=== PATIENT | female | born 1955 | race Two or more races ===

== ENCOUNTER 2022-06-06 05:40 | Day surgery (SDC) | payer OTHER | END 2022-06-06 10:30 | disposition home or self-care (01) | LOC: AMB-ENDOS 05:40 | PROVIDERS: ATTEND Colon & Rectal Surgery | DX: K57.32 Diverticulitis of large intestine without perforation or abscess without bleeding (principal); R19.5 Other fecal abnormalities; K64.8 Other hemorrhoids ==

== ENCOUNTER 2022-08-01 10:41 | Inpatient (IN) | payer OTHER ==
[~2022-08-01] VITALS: Ht 149.9 cm; Wt 46.7 kg
[2022-08-01] MEDS ORDERED: CRESTOR20 MG PO (13:51)
[2022-08-01] MEDS ORDERED: COZAAR100 MG PO (13:51)
[2022-08-01] MEDS ORDERED: GLIMEPIRIDE1 MG PO (13:52)
[2022-08-01] MEDS ORDERED: CATAFAN PO (13:52)
[2022-08-08] MEDS ORDERED: DICLOFENAC POTA50 MG (09:18)
[2022-08-08] MEDS ORDERED: ATORVASTATIN CA40 MG (09:18)
== END 2022-08-09 12:25 | disposition home or self-care (01) | DRG 330 ==
LOC: O/R 08-07 08:35 → SURH 08-07 08:35
PROVIDERS: ADMIT Colon & Rectal Surgery; ATTEND Colon & Rectal Surgery
PROC: 0DN80ZZ Release Small Intestine, Open Approach (ICD-10-PCS; 2022-08-07)
PROC: 0WJG0ZZ Inspection of Peritoneal Cavity, Open Approach (ICD-10-PCS; 2022-08-07)
PROC: 0DQ80ZZ Repair Small Intestine, Open Approach (ICD-10-PCS; principal; 2022-08-07 17:15)
DX: K57.20 Diverticulitis of large intestine with perforation and abscess without bleeding (principal); K56.51 Intestinal adhesions [bands], with partial obstruction; K91.72 Accidental puncture and laceration of a digestive system organ or structure during other procedure; Z53.31 Laparoscopic surgical procedure converted to open procedure; Z93.3 Colostomy status

== ENCOUNTER 2022-08-14 17:43 | Emergency (ER) | payer OTHER ==
[~2022-08-14] VITALS: Ht 149.9 cm; Wt 78.5 kg
[~2022-08-14 17:43] MED LIST: ATORVASTATIN CA40 MG; CATAFAN PO; COZAAR100 MG PO; CRESTOR20 MG PO; DICLOFENAC POTA50 MG; GLIMEPIRIDE1 MG PO
== END 2022-08-14 21:17 | disposition home or self-care (01) ==
LOC: ER 17:43
DX: T81.30XA Disruption of wound, unspecified, initial encounter (principal); Z93.3 Colostomy status; I10 Essential (primary) hypertension

== ENCOUNTER 2023-10-10 08:27 | Inpatient (IN) | payer OTHER ==
[2023-10-16] MEDS ORDERED: SERTRALINE HCL25 MG (10:49)
[2023-10-16] MEDS ORDERED: LOSARTAN POTAS100 MG (10:49)
[2023-10-16] MEDS ORDERED: CHLORHEXIDINE GLUCONATE 120 ML BOTTLE TOP ONE (14:45)
[2023-10-16] MEDS ORDERED: METRONIDAZOLE/SODIUM CHLORIDE 500 MG/100 ML PIGGYBACK IV SCH (14:45)
[2023-10-16] MEDS ORDERED: CEFTRIAXONE SODIUM 2,000 MG VIAL IV SCH (14:45)
[2023-10-16] MEDS ORDERED: MORPHINE SULFATE 4 MG/ML CARTRIDGE IV PRN (17:15)
[2023-10-16] MEDS ORDERED: OxyCODONE HCL 5 MG TABLET (ROXICODONE) PO PRN (17:15)
[2023-10-16] MEDS ORDERED: ONDANSETRON HCL 2 MG/ML VIAL IV PRN (17:15)
[2023-10-16] MEDS ORDERED: RINGERS SOLUTION,LACTATED 1,000 ML IV SCH (17:15)
[2023-10-16] MEDS ORDERED: SUGAMMADEX SODIUM 200 MG/2 ML VIAL IV ONE (18:45)
[2023-10-16] MEDS ORDERED: ACETAMINOPHEN 500 MG GEL..CAP PO SCH (20:00)
[2023-10-16] MEDS ORDERED: FAMOTIDINE/PF 20 MG/2 ML VIAL IV PUSH SCH (21:00)
[2023-10-16] MEDS ORDERED: SIMETHICONE 125 MG CAPSULE PO SCH (21:00)
[2023-10-16 21:37] LABS: HEMATOCRIT 41.5 % (36.0-45.00); HEMOGLOBIN 13.4 g/dL (12.0-15.00); MEAN CORPUSCULAR HEMOGLOBIN 30.1 pg (27.00-32.0); MEAN CORPUSCULAR HGB CONC 32.3 g/dl (32.0-36.0); PLATELET COUNT 243 K/uL (150-450); RED BLOOD COUNT 4.46 M/uL (4.00-6.00)
[2023-10-17] MEDS ORDERED: GABAPENTIN 300 MG CAPSULE PO SCH (01:00)
[2023-10-17] MEDS ORDERED: METOCLOPRAMIDE HCL 5 MG/ML VIAL IV SCH (01:00)
[2023-10-17] MEDS ORDERED: CELECOXIB 200 MG CAPSULE PO SCH (05:00)
[2023-10-17 08:23] LABS: HEMATOCRIT 41.7 % (36.0-45.00); HEMOGLOBIN 13.6 g/dL (12.0-15.00); MEAN CELL VOLUME 92.2 fL (80.00-100.00); MEAN CORPUSCULAR HEMOGLOBIN 30.2 pg (27.00-32.0); MEAN CORPUSCULAR HGB CONC 32.7 g/dl (32.0-36.0); RED BLOOD COUNT 4.52 M/uL (4.00-6.00)
[2023-10-17 08:24] LABS: PLATELET COUNT 138 K/uL (150-450)
[2023-10-17 08:45] LABS: ALBUMIN 3.2 gm/dL (3.4-5.0); CALCIUM 8.3 mg/dL (8.5-10.1); CREATININE SERUM 1.99 mg/dL (0.55-1.02); GFR 24.92; MAGNESIUM 1.8 mg/dL (1.8-2.4); PHOSPHOROUS 4.8 mg/dL (2.5-4.9); POTASSIUM 4.97 mEq/L (3.5-5.1)
[2023-10-17] MEDS ORDERED: LACTULOSE 20 G/30 ML BLIST.PACK PO SCH (09:00)
[2023-10-17] MEDS ORDERED: LACTOBACILLUS ACIDOPHILUS 1 CAP CAP PO SCH (09:00)
[2023-10-17] MEDS ORDERED: HYOSCYAMINE SULFATE 0.125 MG TAB.SUBL SL SCH (09:00)
[2023-10-17] MEDS ORDERED: LOSARTAN POTASSIUM 100 MG TABLET PO SCH (09:40)
[2023-10-17] MEDS ORDERED: MEPERIDINE HCL/PF 50 MG/ML VIAL IV PRN (11:30)
[2023-10-17] MEDS ORDERED: POLYETHYLENE GLYCOL 3350 17 GM BLIST.PACK PO SCH (17:00)
[2023-10-17] MEDS ORDERED: ENOXAPARIN SODIUM 40 MG/0.4 ML SYRINGE SUBCUTANEO SCH (17:00)
[2023-10-18 06:16] LABS: CALCIUM 8.7 mg/dL (8.5-10.1); CREATININE SERUM 1.57 mg/dL (0.55-1.02); GFR 32.76; MAGNESIUM 1.9 mg/dL (1.8-2.4); PHOSPHOROUS 3.3 mg/dL (2.5-4.9); POTASSIUM 4.82 mEq/L (3.5-5.1)
[2023-10-18] MEDS ORDERED: ENOXAPARIN SODIUM 40 MG/0.4 ML SYRINGE SUBCUTANEO SCH (09:00)
[2023-10-18] MEDS ORDERED: ENALAPRILAT DIHYDRATE 1.25 MG/ML VIAL IV PRN (11:45)
[2023-10-18] MEDS ORDERED: hydrALAZINE HCL 20 MG VIAL IV PRN (22:30)
[2023-10-19] MEDS ORDERED: ALBUTEROL SULFATE 3 ML/2.5 MG AMPUL.NEB IH STA (07:57)
[2023-10-19] MEDS ORDERED: ALBUTEROL SULFATE 3 ML/2.5 MG AMPUL.NEB IH SCH (09:00)
[2023-10-19 09:08] LABS: ABG PH 7.439 (7.35-7.45)
[2023-10-19 09:09] LABS: ABG PO2 52.5 mmHg (80-100); ABG pCO2 38.7 mmHg (35-45); BASE EXCESS 1.6 mmol/l; BICARBONATE 25.6 mmol/l (23-25); SaO2 88.3 %; Tco2 26.8 mmol/l; allen test SATISFACTORY; o2 21 %; puncture site RADIAL RIGHT
[2023-10-19] MEDS ORDERED: FUROsemide 40 MG/4 ML VIAL IV NR (13:15)
[2023-10-19] MEDS ORDERED: BENZONATATE 100 MG CAPSULE PO SCH (14:01)
[2023-10-19 14:23] LABS: HEMATOCRIT 30.7 % (36.0-45.00); HEMOGLOBIN 10.2 g/dL (12.0-15.00); MEAN CORPUSCULAR HEMOGLOBIN 29.7 pg (27.00-32.0); PLATELET COUNT 243 K/uL (150-450); RED BLOOD COUNT 3.42 M/uL (4.00-6.00); RED CELL DISTRIBUTION WIDTH 15.6 % (11.5-14.5)
[2023-10-19 14:39] LABS: BILIRUBIN TOTAL 0.73 mg/dL (0.3-1.2); CALCIUM 8.8 mg/dL (8.5-10.1); CREATININE SERUM 0.8 mg/dL (0.55-1.02); GFR 71.33; GLOBULINA 3.7 G/DL (2.4-3.5); POTASSIUM 3.61 mEq/L (3.5-5.1); TOTAL PROTEIN 6.7 gm/dL (6.4-8.2)
[2023-10-19] MEDS ORDERED: MONTELUKAST SODIUM 10 MG TABLET PO SCH (17:00)
[2023-10-20] MEDS ORDERED: FUROsemide 20 MG/2 ML VIAL IV SCH (09:00)
[2023-10-21 09:12] LABS: ABG PH 7.482 (7.35-7.45); ABG PO2 60.9 mmHg (80-100); ABG pCO2 38.7 mmHg (35-45); BASE EXCESS 4.6 mmol/l; BICARBONATE 28.2 mmol/l (23-25); SaO2 93.2 %; Tco2 29.4 mmol/l
[2023-10-21 09:18] LABS: allen test SATISFACTORY; puncture site RADIAL RIGHT
[2023-10-21 09:21] LABS: o2 21 %
[2023-10-21] MEDS ORDERED: DEXTROSE 50 % IN WATER 0.5 G/ML VIAL IV PRN (12:30)
[2023-10-21] MEDS ORDERED: INSULIN LISPRO 1,000 UNIT/10 ML UNITS SUBCUTANEO PRN (12:30)
[2023-10-22 08:15] LABS: HEMOGLOBIN 10.9 g/dL (12.0-15.00); MEAN CELL VOLUME 91.8 fL (80.00-100.00); MEAN CORPUSCULAR HEMOGLOBIN 30.3 pg (27.00-32.0); PLATELET COUNT 291 K/uL (150-450); RED CELL DISTRIBUTION WIDTH 15.3 % (11.5-14.5)
[2023-10-22 09:23] LABS: CALCIUM 9.1 mg/dL (8.5-10.1); CREATININE SERUM 1.19 mg/dL (0.55-1.02); GFR 45.11; MAGNESIUM 2.2 mg/dL (1.8-2.4); PHOSPHOROUS 3.2 mg/dL (2.5-4.9); POTASSIUM 4.03 mEq/L (3.5-5.1)
[2023-10-22] MEDS ORDERED: CELEBREX200MG PO (11:13)
[2023-10-22] MEDS ORDERED: INTESTINEX680 M1 PO (11:14)
[2023-10-22] MEDS ORDERED: SIMETHICONE125 M1 PO (11:15)
== END 2023-10-22 13:51 | disposition home or self-care (01) | DRG 330 ==
LOC: ADM 11:45 → O/R 10-16 07:48 → CIR.AMB 10-16 08:45 → SURH 10-16 11:45 → EDSTATUS 10-16 11:45 → CIR.AMB 10-16 11:45 → SURH 10-16 19:05
PROVIDERS: Internal Medicine; Surgery; ADMIT Colon & Rectal Surgery; ATTEND Colon & Rectal Surgery
PROC: 0DQ80ZZ Repair Small Intestine, Open Approach (ICD-10-PCS; 2023-10-16)
PROC: 0WQF0ZZ Repair Abdominal Wall, Open Approach (ICD-10-PCS; 2023-10-16)
PROC: 0KXL0ZZ Transfer Left Abdomen Muscle, Open Approach (ICD-10-PCS; 2023-10-16)
PROC: 0KXK0ZZ Transfer Right Abdomen Muscle, Open Approach (ICD-10-PCS; 2023-10-16)
PROC: 0DN80ZZ Release Small Intestine, Open Approach (ICD-10-PCS; 2023-10-16)
PROC: 0DNW0ZZ Release Peritoneum, Open Approach (ICD-10-PCS; 2023-10-16)
PROC: 0D1E0Z4 Bypass Large Intestine to Cutaneous, Open Approach (ICD-10-PCS; principal; 2023-10-16 08:45)
PROC: 0D9670Z Drainage of Stomach with Drainage Device, Via Natural or Artificial Opening (ICD-10-PCS; 2023-10-17)
PROC: 3E0F7GC Introduction of Other Therapeutic Substance into Respiratory Tract, Via Natural or Artificial Opening (ICD-10-PCS; 2023-10-19)
PROC: 4A12X4Z Monitoring of Cardiac Electrical Activity, External Approach (ICD-10-PCS; 2023-10-19)
PROC: 06HY33Z Insertion of Infusion Device into Lower Vein, Percutaneous Approach (ICD-10-PCS; 2023-10-19)
DX: K57.20 Diverticulitis of large intestine with perforation and abscess without bleeding (principal); I97.51 Accidental puncture and laceration of a circulatory system organ or structure during a circulatory system procedure; K43.2 Incisional hernia without obstruction or gangrene; K66.0 Peritoneal adhesions (postprocedural) (postinfection); R00.0 Tachycardia, unspecified; R06.02 Shortness of breath; R09.02 Hypoxemia; R11.0 Nausea; E11.9 Type 2 diabetes mellitus without complications; I10 Essential (primary) hypertension; Z43.3 Encounter for attention to colostomy; Z79.4 Long term (current) use of insulin